=== PATIENT | male | born 1980 ===

== ENCOUNTER → 2024-06-13 | Outpatient (REF) | payer OTHER ==
[2024-06-13 14:25] LABS: ALBUMIN 4.1 G/DL (3.2-5.2); ALKALINE PHOSPHATASE 104 U/L (40-129); ALT/SGPT 89 U/L (7.0-40); AST/SGOT 36 U/L (<34); BILIRUBIN,TOTAL 0.3 MG/DL (0.3-1.2); BLOOD UREA NITROGEN 17 MG/DL (9-23); CALCIUM LEVEL 9.9 MG/DL (8.5-10.1); CARBON DIOXIDE LEVEL 29 MMOL/L (20-31); CHLORIDE LEVEL 106 MMOL/L (98-107); CHOLESTEROL LEVEL 197 MG/DL (<200); CHOLESTEROL RISK RATIO 2.96 (<5); CREATININE FOR GFR 0.71 MG/DL (0.70-1.30); GLOMERULAR FILTRATION RATE > 60.0 (>60); GLUCOSE, FASTING 137 MG/DL (60-100); HDL CHOLESTEROL 66.5 MG/DL (>40); LDL CHOLESTEROL 122.9 MG/DL (<100); NON-HDL-C 130.5 MG/DL; POTASSIUM SERUM 4.2 MMOL/L (3.5-5.1); SODIUM LEVEL 139 MMOL/L (136-145); TRIGLYCERIDES LEVEL 38 MG/DL (<150)
[2024-06-13 14:27] LABS: THYROID STIMULATING HORMONE 1.059 uIU/ML (0.55-4.78)
== END ==
LOC: M LAB REF 12:56
PROVIDERS: ATTEND Family Medicine Addiction Medicine
DX: I10 Essential (primary) hypertension (principal)

== ENCOUNTER → 2025-05-15 | Outpatient (REF) | payer OTHER ==
[2025-05-15 15:44] LABS: ALT/SGPT 103 U/L (7.0-40); AST/SGOT 51 U/L (<34); CALCIUM LEVEL 9.4 MG/DL (8.5-10.1); CARBON DIOXIDE LEVEL 27 MMOL/L (20-31); CHLORIDE LEVEL 105 MMOL/L (98-107); CHOLESTEROL LEVEL 216 MG/DL (<200); CHOLESTEROL RISK RATIO 3.44 (<5); CREATININE FOR GFR 0.74 MG/DL (0.70-1.30); GLOMERULAR FILTRATION RATE > 90.0 (>60); LDL CHOLESTEROL 139.1 MG/DL (<100); NON-HDL-C 153.3 MG/DL; POTASSIUM SERUM 4.9 MMOL/L (3.5-5.1); SODIUM LEVEL 140 MMOL/L (136-145); TRIGLYCERIDES LEVEL 71 MG/DL (<150)
[2025-05-15 16:51] LABS: ESTIMATED AVERAGE GLUCOSE 117.0 MG/DL (60-110)
== END ==
LOC: M LAB REF 15:03
PROVIDERS: ATTEND Family Medicine Addiction Medicine
DX: R68.89 Other general symptoms and signs (principal)